=== PATIENT | male | born 1985 | race Caucasian/White ===

== ENCOUNTER 2018-05-24 12:40 | Emergency (ER) | payer BC ==
[~2018-05-24] VITALS: Ht 188 cm; Wt 102.3 kg
[2018-05-24] MEDS ORDERED: dexamethasone sod phosphate 10mg/ml inj IM STA (14:39)
[2018-05-24] MEDS ORDERED: orphenadrine citrate 60mg/2ml inj. IM ONE (14:40)
[2018-05-24] MEDS ORDERED: ketorolac trometh inj. 60 MG/2 ML VIAL IM ONE (14:40)
[2018-05-24] MEDS ORDERED: ketorolac trometh. 30mg/ml inj. IM ONE (14:50)
[2018-05-24 14:57] LABS: CLARITY,URINE CLEAR (Clear); COLOR,URINE YELLOW (Yellow); GLUCOSE, URINE NEGATIVE (Neg); KETONES,URINE NEGATIVE (Neg); LEUKOCYTE ESTERASE ,URINE NEGATIVE (Neg); NITRITES, URINE NEGATIVE (Neg); OCCULT BLOOD,URINE NEGATIVE (Neg); PROTEIN,URINE NEGATIVE (Neg); UROBILINOGEN,URINE 0.2 E.U/dL (0.2-1.0)
[2018-05-24 15:02] LABS: UA COLLECTION TYPE VOIDED
[2018-05-24] MEDS ORDERED: IBUP-1985 PO (15:09)
[2018-05-24] MEDS ORDERED: METH-360 PO (15:09)
[2018-05-24 15:32] VITALS: BP 121/88
== END 2018-05-24 15:34 | disposition home or self-care (01) ==
LOC: ER 12:40
DX: M54.5 Low back pain (principal); R32 Unspecified urinary incontinence; R20.0 Anesthesia of skin; Z79.899 Other long term (current) drug therapy
CPT/HCPCS: 81003; 96372; 99284; J1100; J1885